=== PATIENT | male | born 1960 | race Caucasian/White ===

== ENCOUNTER 2017-05-02 05:31 | Outpatient (CLI) | payer OTHER ==
[~2017-05-02] VITALS: Ht 177.8 cm; Wt 104.3 kg
[~2017-05-02 05:31] MED LIST: ASP325TEC PO; DICY20TA57 PO; METO-272 PO
== END 2017-05-02 13:32 ==
LOC: PREOP 05:31
PROVIDERS: ATTEND Internal Medicine
DX: Z01.818 Encounter for other preprocedural examination (principal); Z12.11 Encounter for screening for malignant neoplasm of colon

== ENCOUNTER 2017-05-05 08:01 | Day surgery (SDC) | payer OTHER ==
[~2017-05-05] VITALS: Ht 177.8 cm; Wt 104.3 kg
--- OUTSIDE RECORDS SUMMARY | 2017-05-05 08:04 | XMS REPORT | Continuity of Care Document ---
Author Author [facility] Organization [facility] Address Unknown Phone Unavailable Allergies Active Description Code Type Severity Reaction Onset Reported/Identified Relationship to Patient Clinical Status Yes No Known Drug Allergies [id number] Drug Allergy Mild N/A 08/22/2009 Medications Problems Date Dx Coded Attending Type Code Diagnosis Diagnosed By 05/14/2015 WYATT CARROLL APRN Ot 401.9 05/14/2015 WYATT CARROLL APRN Ot 924.10 05/14/2015 WYATT CARROLL APRN Ot 959.7 05/14/2015 WYATT CARROLL APRN Ot E000.8 05/14/2015 WYATT CARROLL APRN Ot E849.0 05/14/2015 WYATT CARROLL APRN Ot E917.4 Procedures Results Encounters ACCT No. Visit Date/Time Discharge Status Pt. Type Provider Facility Loc./Unit Complaint [id number] 05/14/2015 12:01:00 2014 13:23:00 DIS Emergency WYATT CARROLL APRN [facility] ER [id number] 05/05/2017 09:00:00 PEN PreadAHLEY Robb MD [facility] ENDO SCREENING
[2017-05-05] MEDS ORDERED: 1/2 NS IV SOLUTION 1,000 ML IV STA (08:11)
[2017-05-05] MEDS ORDERED: MIDAZOLAM 2 MG/2 ML (VERSED) VIAL IVP PRN (08:15)
[2017-05-05] MEDS ORDERED: LIDOCAINE JELLY 2% (XYLOCAINE) 5 ML TUBE MM PRN (08:15)
[2017-05-05] MEDS ORDERED: 1/2 NS IV SOLUTION 1,000 ML IV ONE (08:21)
[2017-05-05 08:35] VITALS: BP 145/102
[2017-05-05] MEDS ORDERED: fentaNYL INJECTION 100 MCG/2 ML AMP ONE (08:46)
[2017-05-05] MEDS ORDERED: MIDAZOLAM 2 MG/2 ML (VERSED) VIAL ONE ×2 (08:46)
[2017-05-05] MEDS ORDERED: LIDOCAINE JELLY 2% (XYLOCAINE) 5 ML TUBE ONE (08:46)
--- NOTE | 2017-05-05 09:02 | Pre-Op Note & Conscious Sedat ---
Pre-Operative Progress Note H&P Reviewed The H&P was reviewed, patient examined and no changes noted. Date H&P Reviewed: May 05, 2017 Time H&P Reviewed: 09:00 Conscious Sedation Pre-Proced ASA Class: 2 Airway Mallampati Classification: (pedro bay appropriate class) I. II. III, IV Lungs Heart ASA score ASA 1: a normal healthy patient ASA 2: a patient with a mild systemic disease (mid diabetes, controlled hypertension, obesity ASA 3: a patient with a severe systemic disease that limits activity (angina , COPD, prior Myocardial infarction) ASA 4: a patient with an incapacitating disease that is a constant threat to life (CHF, renal failure) ASA 5: a moribund patient not expected to survive 24 hrs. (ruptured aneurysm) ASA 6: a declared brain patient whose organs are being harvested. For emergent operations, add the letter E after the classification Grade 2 Sedation Plan: Analgesia, Amnesia, Plan communicated to team members, Discussed options with patient/fam, Discussed risks with patient/fam Note The patient is an appropriate candidate to undergo the planned procedure, sedation, and anesthesia. The patient immediately re-assessed prior to indication. HALEY MANNING MD May 05, 2017 09:02
[2017-05-05] MEDS: fentaNYL INJECTION 100 MCG/2 ML AMP IVP PRN ×2 (09:10→09:15)
[2017-05-05 09:45] VITALS: BP 130/93
[2017-05-05 10:15] VITALS: BP 123/85
[2017-05-05 11:25] VITALS: BP 123/85
--- NOTE | 2017-05-06 09:30 | OPERATIVE REPORT ---
PROCEDURE PHYSICIAN: HALEY MANNING DATE OF PROCEDURE: 05/05/2017 COLONOSCOPY SUMMARY: INDICATION FOR THE PROCEDURE: Screening colonoscopy. PRIMARY CARE PROVIDER: Dr. Manning PROCEDURE: The patient was placed in left lateral decubitus position. Prior to undergoing colonoscopy, digital rectal evaluation was performed. Anal sphincter tone was normal and the perianal reflex was intact. The prostate was mildly enlarged, nontender and anodular to digital inspection with uniform consistency to digital inspection. No other abnormalities were noted to digital inspection of the anal canal and distal rectal vault. The colonoscope was then inserted into the rectum and under direct visualization, advanced to the cecum. The cecum was identified by identification of the ileocecal valve and cecal strap. Photographic documentation was obtained and a careful inspection was made. FINDINGS: There was no evidence for internal or external hemorrhoids and the rectum was unremarkable. Present at the rectosigmoid junction was a diminutive hyperplastic appearing polyp. It was biopsied, ablated, and submitted for histopathology, with no subsequent blood loss. A moderate number of small to medium size sigmoid diverticulum were present throughout the sigmoid colon and to a lesser extent involving the descending colon. No other abnormalities were in these locations were noted. The splenic flexure, transverse colon, hepatic flexure, ascending colon and cecum were normal. ASSESSMENT: 1. Mild to moderate diverticular disease noted in the sigmoid colon and to a lesser extent the descending colon were present without evidence for diverticulitis. 2. One diminutive hyperplastic appearing polyp was removed from the rectosigmoid junction via hot forceps. 3. Digital rectal evaluation compatible with mild BPH with an otherwise unremarkable digital prostate inspection. The patient is not aware of any family history for colon cancer. As long as there are no surprises on histopathology report, we will be advocating consideration for repeat screening colonoscopy in 10 years. Job ID: [id number] Dictated Date: 05/05/2017 11:45:22 Load Test Mechanic Date: 05/06/2017 09:23:46 / tbk
== END 2017-05-05 11:28 | disposition home or self-care (01) ==
LOC: ENDO 08:01
PROVIDERS: ATTEND Internal Medicine
DX: Z12.11 Encounter for screening for malignant neoplasm of colon (principal); K62.1 Rectal polyp; K57.30 Diverticulosis of large intestine without perforation or abscess without bleeding; I10 Essential (primary) hypertension; Z80.0 Family history of malignant neoplasm of digestive organs

== ENCOUNTER 2017-08-06 09:16 | Emergency (ER) | payer OTHER ==
[~2017-08-06] VITALS: Ht 175.3 cm; Wt 79.4 kg
--- OUTSIDE RECORDS SUMMARY | 2017-08-06 09:21 | XMS REPORT | Continuity of Care Document ---
Author Author [facility] Organization [facility] Address Unknown Phone Unavailable Allergies Active Description Code Type Severity Reaction Onset Reported/Identified Relationship to Patient Clinical Status Yes No Known Drug Allergies [id number] Drug Allergy Mild N/A 08/22/2009 Medications Problems Date Dx Coded Attending Type Code Diagnosis Diagnosed By 05/14/2015 WYATT CARROLL APRN Ot 401.9 HYPERTENSION NOS 05/14/2015 WYATT CARROLL APRN Ot 924.10 CONTUSION OF LOWER LEG 05/14/2015 WYATT CARROLL APRN Ot 959.7 LOWER LEG INJURY NOS 05/14/2015 WYATT CARROLL TELECOMMUNICATIONS ANALYST Ot E000.8 OTHER EXTERNAL CAUSE STATUS 05/14/2015 WYATT CARROLL APRN Ot E849.0 ACCIDENT IN HOME 05/14/2015 WYATT CARROLL TELECOMMUNICATIONS ANALYST Ot E917.4 STAT OB W/O SUB FALL NEC 05/02/2017 HALEY MANNING MD Ot Z01.818 ENCOUNTER FOR OTHER PREPROCEDURAL EXAMIN 05/02/2017 HALEY MANNING MD Ot Z12.11 ENCOUNTER FOR SCREENING FOR MALIGNANT NE 05/05/2017 HALEY MANNING MD Ot I10 ESSENTIAL (PRIMARY) HYPERTENSION 05/05/2017 HALEY MANNING MD Ot K57.30 DVRTCLOS OF LG INT W/O PERFORATION OR AB 05/05/2017 HALEY MANNING MD Ot K62.1 RECTAL POLYP 05/05/2017 HALEY MANNING MD Ot Z12.11 ENCOUNTER FOR SCREENING FOR MALIGNANT NE 05/05/2017 HALEY MANNING MD Ot Z80.0 FAMILY HISTORY OF MALIGNANT NEOPLASM OF 05/10/2017 HALEY MANNING MD Ot I10 ESSENTIAL (PRIMARY) HYPERTENSION 05/10/2017 HALEY MANNING MD Ot K57.30 DVRTCLOS OF LG INT W/O PERFORATION OR AB 05/10/2017 HALEY MANNING MD Ot K62.1 RECTAL POLYP 05/10/2017 HALEY MANNING MD Ot Z12.11 ENCOUNTER FOR SCREENING FOR MALIGNANT NE 05/10/2017 HALEY MANNING MD Ot Z80.0 FAMILY HISTORY OF MALIGNANT NEOPLASM OF 05/17/2017 HALEY MANNING MD Ot I10 ESSENTIAL (PRIMARY) HYPERTENSION 05/17/2017 HALEY MANNING MD Ot K57.30 DVRTCLOS OF LG INT W/O PERFORATION OR AB 05/17/2017 HALEY MANNING MD Ot K62.1 RECTAL POLYP 05/17/2017 HALEY MANNING MD Ot Z12.11 ENCOUNTER FOR SCREENING FOR MALIGNANT NE 05/17/2017 HALEY MANNING MD Ot Z80.0 FAMILY HISTORY OF MALIGNANT NEOPLASM OF Procedures Results Encounters ACCT No. Visit Date/Time Discharge Status Pt. Type Provider Facility Loc./Unit Complaint [id number] 05/05/2017 08:01:00 2016 11:28:00 DIS Outpatient HALEY MANNING MD [facility] ENDO SCREENING [id number] 05/02/2017 05:31:00 2016 13:32:00 DIS Outpatient HALEY MANNING MD [facility] PREOP SCREENING COLONOSCOPY [id number] 05/14/2015 12:01:00 2014 13:23:00 DIS Emergency WYATT CARROLL APRN [facility] ER RT LOWER LEG INJ
[2017-08-06] MEDS ORDERED: ONDANSETRON 4 MG/2 ML (SDV) Z0FRAN IVP ONE (09:45)
[2017-08-06] MEDS ORDERED: fentaNYL INJECTION 100 MCG/2 ML AMP IVP ONE (09:45)
[2017-08-06] MEDS ORDERED: NS IV 1000 ML 1,000 ML IV ONE (09:47)
[2017-08-06 09:54] LABS: BASOPHILS % (AUTO) 0 % (0-10); EOSINOPHILS % (AUTO) 0 % (0-10); LYMPHOCYTES # (AUTO) 1.2 X 10^3 (1.0-4.0); LYMPHOCYTES % (AUTO) 9 % (12-44); MEAN CORPUSCULAR HEMOGLOBIN 29 PG (25-34); MEAN CORPUSCULAR HGB CONC 34 G/DL (32-36); MEAN CORPUSCULAR VOLUME 86 FL (80-99); MEAN PLATELET VOLUME 10.2 FL (7.4-10.4); MONOCYTES # (AUTO) 0.8 X 10^3 (0.0-1.0); MONOCYTES % (AUTO) 6 % (0-12); NEUTROPHILS # (AUTO) 11.7 X 10^3 (1.8-7.8); NEUTROPHILS % (AUTO) 86 % (42-75); PLATELET COUNT 302 10^3/uL (130-400); RED BLOOD COUNT 5.41 10^6/uL (4.35-5.85); RED CELL DISTRIBUTION WIDTH 13.4 % (10.0-14.5); WHITE BLOOD COUNT 13.7 10^3/uL (4.3-11.0)
--- NOTE | 2017-08-06 09:54 | ED Abdominal Pain ---
General Chief Complaint: Abdominal/GI Problems Stated Complaint: TESTICULAR PAIN Nursing Triage Note: c/o right flank pain with radiation to abdomen/testicles. Onset 0530 this morning. Sepsis Screen: No Definite Risk Source of Information: Patient Exam Limitations: No Limitations History of Present Illness Time Seen By Provider: 09:41 Initial Comments Patient presents to ER by private conveyance with a chief complaint that she's having some pain that he woke up this morning with in his right flank radiating to his right lower quadrant. It is appendix out 30 years ago. He has no other surgical history. This pain is nonradiating and comes in waves but never abets to less than a moderate pain. He has no shortness of breath, chest pain, cough, fevers, chills. He has no prior trauma. His last bowel movement was last night and was a little bit soft but without black tarry appearance or blood. He is concerned he might have a bowel obstruction. He is passing gas. He has no history of kidney stones. Denies dysuria or discharge. Patient describes the pain sometimes radiating down to his testicles but not presently. Allergies and Home Medications Allergies Coded Allergies: No Known Drug Allergies (Unverified , 08/22/09) Home Medications Ondansetron 4 Mg Tab.rapdis, 4 MG PO Q6H PRN for NAUSEA/VOMITING-1ST LINE, #14 Ref 0 Prescribed by: SOPHIA BOATENG on 08/06/17 1034 Oxycodone HCl/Acetaminophen 1 Each Tablet, 1-2 EACH PO Q6H PRN for PAIN- MODERATE TO SEVERE, #30 Ref 0 Prescribed by: SOPHIA BOATENG on 08/06/17 1034 Sulfamethoxazole/Trimethoprim 1 Each Tablet, 1 EACH PO BID for 5 Days, #10 Ref 0 Prescribed by: SOPHIA BOATENG on 08/06/17 1034 Tamsulosin HCl 0.4 Mg Cap, 0.4 MG PO HS for 7 Days, #7 Ref 0 Prescribed by: SOPHIA BOATENG on 08/06/17 1034 Review of Systems Constitutional: No chills, diaphoresis, No fever EENTM: No Ear Pain, No Mouth Pain Respiratory: Denies Cough, Denies Shortness of Air Cardiovascular: Denies Chest Pain, Denies Lightheadedness Gastrointestinal: See HPI, Denies Abdomen Distended, Abdominal Pain, Denies Blood Streaked Stools, Denies Constipated, Denies Diarrhea, Nausea, Denies Vomiting Genitourinary: Denies Burning, Denies Discharge Musculoskeletal: see HPI, back pain, No joint pain Skin: No pruritus, No rash Psychiatric/Neurological: Denies Headache, Denies Numbness, Paresthesia ( bilateral fingertips on the pain is very severe.) Past Yprnxbf-Gpkuxr-Xzleuq Hx Patient Social History Alcohol Use: Denies Use Recreational Drug Use: No Smoking Status: Never a Smoker Recent Foreign Travel: No Contact w/Someone Who Travel: No Recent Infectious Disease Expo: No Recent Hopitalizations: No Seasonal Allergies Seasonal Allergies: No Surgeries Surgeries: Appendectomy Cardiovascular Cardiac Disorders: Hypertension Reproductive System Hx Reproductive Disorders: No Sexually Transmitted Disease: No Physical Exam Vital Signs VS - Last 72 Hours, by Label 08/06/17 08/06/17 08/06/17 09:25 09:45 10:47 Temp 96.3 96.3 96.3 Pulse 70 Resp 16 B/P (MAP) 175/114 Pulse Ox 98 O2 Delivery Room Air Capillary Refill : Less Than 3 Seconds General Appearance: WD/WN, mild distress HEENT: PERRL/EOMI, pharynx normal Neck: non-tender, normal inspection Respiratory: chest non-tender, lungs clear, normal breath sounds Cardiovascular: normal peripheral pulses, regular rate, rhythm, no edema Peripheral Pulses: 2+ Dorsalis Pedis (R), 2+ Left Dors-Pedis (L) Gastrointestinal: normal bowel sounds, non tender, soft, guarding Extremities: normal range of motion, normal inspection, normal capillary refill Back: normal inspection, no CVA tenderness Neurologic/Psychiatric: alert, oriented x 3 Skin: normal color, diaphoresis Focused Exam Evaluation Lactate Level Laboratory Tests 08/06/17 10:06: Lactic Acid Level 2.13*H 08/06/17 11:55: Lactic Acid Level 1.31 Time of Focused Exam: 12:51 Respiratory: Chest Non Tender, Lungs Clear, Normal Breath Sounds Cardiovascular: Regular Rate, Rhythm, No Edema, No Gallop Capillary Refill: Less Than 3 Seconds Peripheral Pulses: 2+ Dorsalis Pedis (R), 2+ Left Dors-Pedis (L) Skin: normal color, warm/dry Lactic Acid Level Laboratory Tests Test 08/06/17 10:06 08/06/17 11:55 Lactic Acid Level 2.13 MMOL/L (0.50-2.00) *H 1.31 MMOL/L (0.50-2.00) Progress/Results/Core Measures Results/Orders Lab Results Laboratory Tests Test 08/06/17 09:34 08/06/17 10:06 08/06/17 11:55 08/06/17 11:56 Range/Units White Blood Count 13.7 H 4.3-11.0 10^3/uL Red Blood Count 5.41 4.35-5.85 10^6/uL Hemoglobin 15.7 13.3-17.7 G/DL Hematocrit 47 40-54 % Mean Corpuscular Volume 86 80-99 FL Mean Corpuscular Hemoglobin 29 25-34 PG Mean Corpuscular Hemoglobin Concent 34 32-36 G/DL Red Cell Distribution Width 13.4 10.0-14.5 % Platelet Count 302 130-400 10^3/uL Mean Platelet Volume 10.2 7.4-10.4 FL Neutrophils (%) (Auto) 86 H 42-75 % Lymphocytes (%) (Auto) 9 L 12-44 % Monocytes (%) (Auto) 6 0-12 % Eosinophils (%) (Auto) 0 0-10 % Basophils (%) (Auto) 0 0-10 % Neutrophils # (Auto) 11.7 H 1.8-7.8 X 10^3 Lymphocytes # (Auto) 1.2 1.0-4.0 X 10^3 Monocytes # (Auto) 0.8 0.0-1.0 X 10^3 Eosinophils # (Auto) 0.0 0.0-0.3 10^3/uL Basophils # (Auto) 0.0 0.0-0.1 10^3/uL Sodium Level 140 135-145 MMOL/L Potassium Level 3.5 L 3.6-5.0 MMOL/L Chloride Level 105 98-107 MMOL/L Carbon Dioxide Level 24 21-32 MMOL/L Anion Gap 11 5-14 MMOL/L Blood Urea Nitrogen 10 7-18 MG/DL Creatinine 1.05 0.60-1.30 MG/DL Estimat Glomerular Filtration Rate > 60 BUN/Creatinine Ratio 10 Glucose Level 141 H 70-105 MG/DL Calcium Level 9.3 8.5-10.1 MG/DL Total Bilirubin 0.5 0.1-1.0 MG/DL Aspartate Amino Transf (AST/SGOT) 23 5-34 U/L Alanine Aminotransferase (ALT/SGPT) 23 0-55 U/L Alkaline Phosphatase 60 40-136 U/L Total Protein 7.1 6.4-8.2 GM/DL Albumin 4.3 3.2-4.5 GM/DL Lactic Acid Level 2.13 *H 1.31 0.50-2.00 MMOL/L Urine Color YELLOW Urine Clarity CLEAR Urine pH 5 5-9 Urine Specific Center 1.025 H 1.016-1.022 Urine Protein 1+ H NEGATIVE Urine Glucose (UA) NEGATIVE NEGATIVE Urine Ketones NEGATIVE NEGATIVE Urine Nitrite NEGATIVE NEGATIVE Urine Bilirubin NEGATIVE NEGATIVE Urine Urobilinogen NORMAL NORMAL MG/DL Urine Leukocyte Esterase 1+ H NEGATIVE Urine RBC (Auto) 3+ H NEGATIVE Urine RBC NONE /HPF Urine WBC 0-2 /HPF Urine Crystals NONE /LPF Urine Bacteria NEGATIVE /HPF Urine Casts NONE /LPF Urine Mucus MODERATE H /LPF Urine Culture Indicated NO Urine Opiates Screen NEGATIVE NEGATIVE Urine Oxycodone Screen NEGATIVE NEGATIVE Urine Methadone Screen NEGATIVE NEGATIVE Urine Propoxyphene Screen NEGATIVE NEGATIVE Urine Barbiturates Screen NEGATIVE NEGATIVE Ur Tricyclic Antidepressants Screen NEGATIVE NEGATIVE Urine Phencyclidine Screen NEGATIVE NEGATIVE Urine Amphetamines Screen NEGATIVE NEGATIVE Urine Methamphetamines Screen NEGATIVE NEGATIVE Urine Benzodiazepines Screen NEGATIVE NEGATIVE Urine Cocaine Screen NEGATIVE NEGATIVE Urine Cannabinoids Screen NEGATIVE NEGATIVE My Orders Orders - SOPHIA BOATENG Fentanyl Injection (Sublimaze Injection (08/06/17 09:45) Ondansetron Injection (Zofran Injectio (08/06/17 09:45) Ct Abd/Pelvis Wo(Kidney Stone) (08/06/17 09:47) Saline Lock/Iv-Start (08/06/17 09:47) Cbc With Automated Diff (08/06/17 09:47) Comprehensive Metabolic Panel (08/06/17 09:47) Drug Screen Stat (Urine) (08/06/17 09:47) Ua Culture If Indicated (08/06/17 09:47) Ns Iv 1000 Ml (Sodium Chloride 0.9%) (08/06/17 09:47) Lactic Acid Analyzer (08/06/17 10:08) Potassium Chloride (Tablet) (K Dur Table (08/06/17 10:15) Ketorolac Injection (Toradol Injection) (08/06/17 10:45) Lactic Acid Analyzer (08/06/17 10:57) Sulfamethoxazole/Trimet Ds Tab (Bactrim (08/06/17 11:00) Blood Culture (08/06/17 10:59) Ns Iv 500 Ml (Sodium Chloride 0.9%) (08/06/17 11:26) Oxycodone/Acet 10/325mg Tablet (Percocet (08/06/17 12:30) Medications Given in ED Current Medications Medications Dose Ordered Sig/Morena Route Start Time Stop Time Status Last Admin Dose Admin Fentanyl Citrate 50 mcg ONCE ONCE IVP 08/06/17 09:45 08/06/17 09:46 DC 08/06/17 09:45 50 MCG Ketorolac Tromethamine 15 mg ONCE ONCE IVP 08/06/17 10:45 08/06/17 10:46 DC 08/06/17 10:47 15 MG Ondansetron HCl 4 mg ONCE ONCE IVP 08/06/17 09:45 08/06/17 09:46 DC 08/06/17 09:45 4 MG Potassium Chloride 20 meq ONCE ONCE PO 08/06/17 10:15 08/06/17 10:16 DC 08/06/17 10:47 20 MEQ Sodium Chloride 500 ml @ 0 mls/hr Q0M ONCE IV 08/06/17 11:26 08/06/17 11:27 DC 08/06/17 11:30 1,130 MLS/HR Sodium Chloride 1,000 ml @ 0 mls/hr Q0M ONCE IV 08/06/17 09:47 08/06/17 09:50 DC 08/06/17 10:00 0 MLS/HR Trimethoprim/ Sulfamethoxazole 1 ea ONCE ONCE PO 08/06/17 11:00 08/06/17 11:02 DC 08/06/17 11:15 1 EA Vital Signs/I&O Vital Sign - Last 12Hours 08/06/17 08/06/17 08/06/17 09:25 09:45 10:47 Temp 96.3 96.3 96.3 Pulse 70 Resp 16 B/P (MAP) 175/114 Pulse Ox 98 O2 Delivery Room Air Blood Pressure Mean: 134 Progress Note #1: Time: 09:53 Progress Note Right flank pain concern for kidney stone. Bowel obstruction is less likely given his passing gas and had a stool yesterday evening however its a possibility as well. He's had his appendix out already. Progress Note #2: Time: 12:52 Progress Note Patient's feeling much better pains better controlled and he would prefer going home. We have discussed the pros and cons of inpatient stay versus going home and I agree that the patient would be well served to continue outpatient therapy. He's tolerated by mouth so far. Diagnostic Imaging Diagonstic Imaging: CT Plain Films/CT/US/NM/MRI: abdomen, pelvis Comments Diverticulosis without evidence of diverticulitis. No air or free fluid and no obvious abscess. Right 3 mm stone in the ureter. NAME: EVA JIMENES [facility] REC#: [id number] PT STATUS: REG ER : 1960 PHYSICIAN: SOPHIA BOATENG MD ADMIT DATE: 08/06/17/ER Draft Date of Exam:08/06/17 CT ABD/PELVIS WO(KIDNEY STONE) PROCEDURE: CT urinary tract, rule out kidney stone. TECHNIQUE: Multiple contiguous axial images were obtained through the abdomen and pelvis without the use of intravenous contrast. INDICATION: Nausea. Right-sided flank pain radiating into the right groin There is a 1 cm cyst in the liver. The gallbladder and bile ducts are normal. The spleen, pancreas and adrenals are normal. The left kidney shows a 3 mm nonobstructing calculus. The left ureter is normal. There is mild pelvocaliectasis of the right kidney with some stranding around the right kidney. The right ureter is mildly dilated down into the pelvis where there is a 3 mm calculus just proximal to the ureterovesical junction. There is no intrinsic abnormality of the bladder. There is diverticulosis of the colon with no evidence of diverticulitis or other acute bowel abnormality. There is a ventral hernia at the level of the umbilicus containing only fat. There is no ascites. There is no acute bony abnormality. IMPRESSION: There is a 3 mm calculus just proximal to the right ureterovesical junction causing obstruction at this site. There is a nonobstructing calculus in the left kidney. There is diverticulosis of the colon. There is a small ventral hernia. Dictated on workstation # [id number] Dict: 08/06/17 1004 Trans: 08/06/17 1016 LIZBETH [id number] Interpreted by: AILYN SPENCER MD Electronically signed by: Reviewed: Reviewed by Me Departure Impression Impression: Primary Impression: Kidney stone on right side Disposition: HOME, SELF-CARE Condition: Stable Departure-Patient Inst. Decision time for Depature: 12:52 Referrals: HALEY MANNING MD (PCP/Family) Primary Care Physician Patient Instructions: Kidney Stones (DC) Add. Discharge Instructions: Drink lots of fluids and caffeine is encouraged. Use the pain medicine 1-2 tablets every 6 hours as needed to control your pain. Strain your urine every time to try and catch the stone. If you catch the stone take it to your doctor they can send of the lab have it tested find out what kind of stone it is and will help you further prevent the stones in the future. Use Zofran every 6 hours as needed under the tongue for nausea. Use the Flomax every night to help pass the stone until you've passed it. Use the antibiotics twice a day by mouth to prevent infection. Once you pass the stone you may discontinue these medications although it is not unusual to have pink tinged urine or pain for a few days following passing a stone. Please return to the ER if you experience fevers or nausea and vomiting that does not respond to the Zofran. If you have not been able to pass the stone or are having continued pain and nausea by Monday you should call Dr. Tracy at his office at [phone]. All discharge instructions reviewed with patient and/or family. Voiced understanding. Scripts Tamsulosin HCl (Flomax) 0.4 Mg Cap 0.4 MG PO HS for 7 Days, #7 CAP 0 Refills Prov: SOPHIA BOATENG 08/06/17 Ondansetron (Zofran Odt) 4 Mg Tab.rapdis 4 MG PO Q6H Y for NAUSEA/VOMITING-1ST LINE, #14 TAB 0 Refills Prov: SOPHIA BOATENG 08/06/17 Oxycodone HCl/Acetaminophen (Percocet 10-325 mg Tablet) 1 Each Tablet 1-2 EACH PO Q6H Y for PAIN-MODERATE TO SEVERE, #30 TAB 0 Refills Prov: SOPHIA BOATENG 08/06/17 Sulfamethoxazole/Trimethoprim (Bactrim Ds Tablet) 1 Each Tablet 1 EACH PO BID for 5 Days, #10 TAB 0 Refills Prov: SOPHIA BOATENG 08/06/17 Work/School Note: Work Release Form Date Seen in the Emergency Department: Aug 06, 2017 Return to Work: Aug 07, 2017 Restrictions: No Restrictions Copy Copies To 1: HALEY MANNING MD, TITUS J Aug 06, 2017 09:54
[2017-08-06 10:07] LABS: ALANINE AMINOTRANSFERASE 23 U/L (0-55); ALBUMIN 4.3 GM/DL (3.2-4.5); ANION GAP 11 MMOL/L (5-14); ASPARTATE AMINO TRANSFERASE 23 U/L (5-34); BILIRUBIN,TOTAL 0.5 MG/DL (0.1-1.0); BLOOD UREA NITROGEN 10 MG/DL (7-18); BUN/CREATININE RATIO 10; CALCIUM 9.3 MG/DL (8.5-10.1); CARBON DIOXIDE 24 MMOL/L (21-32); CHLORIDE 105 MMOL/L (98-107); CREATININE SERUM 1.05 MG/DL (0.60-1.30); GFR ESTIMATED > 60; GLUCOSE 141 MG/DL (70-105); POTASSIUM 3.5 MMOL/L (3.6-5.0); SODIUM 140 MMOL/L (135-145); TOTAL PROTEIN 7.1 GM/DL (6.4-8.2)
[2017-08-06] MEDS ORDERED: KCL 20 MEQ TAB (K-DUR) PO ONE (10:15)
--- NOTE | 2017-08-06 10:17 | Diagnostic Imaging Report ---
PROCEDURE: CT urinary tract, rule out kidney stone. TECHNIQUE: Multiple contiguous axial images were obtained through the abdomen and pelvis without the use of intravenous contrast. INDICATION: Nausea. Right-sided flank pain radiating into the right groin There is a 1 cm cyst in the liver. The gallbladder and bile ducts are normal. The spleen, pancreas and adrenals are normal. The left kidney shows a 3 mm nonobstructing calculus. The left ureter is normal. There is mild pelvocaliectasis of the right kidney with some stranding around the right kidney. The right ureter is mildly dilated down into the pelvis where there is a 3 mm calculus just proximal to the ureterovesical junction. There is no intrinsic abnormality of the bladder. There is diverticulosis of the colon with no evidence of diverticulitis or other acute bowel abnormality. There is a ventral hernia at the level of the umbilicus containing only fat. There is no ascites. There is no acute bony abnormality. IMPRESSION: There is a 3 mm calculus just proximal to the right ureterovesical junction causing obstruction at this site. There is a nonobstructing calculus in the left kidney. There is diverticulosis of the colon. There is a small ventral hernia. Dictated by: Dictated on workstation # [id number]
[2017-08-06] MEDS ORDERED: TAMS0.4C98 PO (10:34)
[2017-08-06] MEDS ORDERED: ONDA4TAB8 PO (10:34)
[2017-08-06] MEDS ORDERED: OXYC-202 PO (10:34)
[2017-08-06] MEDS ORDERED: SULF1TAB35 PO (10:34)
[2017-08-06] MEDS ORDERED: KETOROLAC 30 MG/ML VIAL IVP ONE (10:45)
[2017-08-06] MEDS ORDERED: TRIM/SULFAMETH 160/800 (SEPTRA DS) TAB PO ONE (11:00)
[2017-08-06] MEDS ORDERED: NS IV 500 ML 500 ML IV ONE (11:26)
[2017-08-06 12:08] LABS: BILIRUBIN,URINE NEGATIVE (NEGATIVE); KETONES,URINE NEGATIVE (NEGATIVE); LEUKOCYTE ESTERASE ,URINE 1+ (NEGATIVE); NITRITE,URINE NEGATIVE (NEGATIVE); PH,URINE 5 (5-9); PROTEIN,URINE 1+ (NEGATIVE); UROBILINOGEN,URINE NORMAL (NORMAL)
[2017-08-06 12:27] LABS: WBC,URINE 0-2 /HPF
[2017-08-06] MEDS ORDERED: oxyCODONE/APAP 10/325MG (PERCOCET 10) TABLET PO ONE (12:30)
[2017-08-06] MEDS ORDERED: oxyCODONE/APAP 5/325MG (PERCOCET 5) TABLET PO ONE (13:00)
[2017-08-06 13:04] VITALS: BP 153/90
== END 2017-08-06 13:04 | disposition home or self-care (01) ==
LOC: EDUNIT# 09:16 → ER 09:17
DX: N20.0 Calculus of kidney (principal); I10 Essential (primary) hypertension; Z90.49 Acquired absence of other specified parts of digestive tract
CPT/HCPCS: 36415; 74176; 80053; 80306; 81000; 83605; 85025; 87040; 96361; 96374; 96375

== ENCOUNTER → 2017-08-11 | Outpatient (CLI) | payer OTHER ==
[~2017-08-11] MED LIST changes: +ONDA4TAB8 PO; +OXYC-202 PO; +SULF1TAB35 PO; +TAMS0.4C98 PO
--- NOTE | 2017-08-11 19:21 | Diagnostic Imaging Report ---
KUB. INDICATION: Nausea. Right flank pain. 3 mm stone in the distal right ureter is seen on CT from 08/06/17. FINDINGS: There is a 3 mm faint density seen in the right side of the pelvis located medial to a right pelvic phlebolith, may represent the distal ureteric stone. No definitive stone is seen in the urinary tract otherwise. Unremarkable bowel gas pattern is seen. IMPRESSION: There is questionable visualization of the distal right ureteric stone with a 3 mm faint density, possibly correlating with the CT scan findings of 08/06/17. Dictated by: Dictated on workstation # [id number]
== END ==
LOC: RAD 10:13
PROVIDERS: ATTEND Urology
DX: N20.1 Calculus of ureter (principal)
CPT/HCPCS: 74000

== ENCOUNTER → 2017-08-14 | Outpatient (CLI) | payer OTHER | LOC: PREOP 06:07 | PROVIDERS: ATTEND Urology | DX: Z01.818 Encounter for other preprocedural examination (principal); N20.2 Calculus of kidney with calculus of ureter ==

== ENCOUNTER 2017-09-11 06:30 | Outpatient (RCR) | payer OTHER | END 2017-12-04 | disposition home or self-care (01) | LOC: LAB 06:30 | PROVIDERS: ATTEND Urology | DX: N20.9 Urinary calculus, unspecified (principal) | CPT/HCPCS: 82140; 82340; 82507; 82570; 83735; 83945; 83986; 84105; 84133; 84300; 84392; 84560; 88300; 88304 ==

== ENCOUNTER → 2018-10-02 | Outpatient (CLI) | payer OTHER ==
[~2018-10-02] MED LIST changes: -OXYC-202 PO; +OXYC1TAB12 PO
--- NOTE | 2018-10-02 18:09 | Diagnostic Imaging Report ---
INDICATION: History of renal stones. No current complaint. TECHNIQUE: Two supine views of the abdomen at 3:45 p.m. CORRELATION STUDY: 08/11/2017. FINDINGS: A few gas-filled loops of small bowel are present. No evidence for obstruction. Mild severity fecal retention. Tiny calcific densities in the right hemipelvis appears unchanged consistent with small phleboliths. No definitive evidence of calcification over the renal silhouette or expected course of either ureter. Bony structures demonstrate no significant interval change or acute findings. IMPRESSION: 1. Unremarkable examination of the abdomen. No definitive evidence for nephrolithiasis. Dictated by: Dictated on workstation # [id number]
== END ==
LOC: RAD 14:59
PROVIDERS: ATTEND Urology
DX: Z87.442 Personal history of urinary calculi (principal)
CPT/HCPCS: 74018

== ENCOUNTER 2021-05-12 06:10 | Outpatient (CLI) | payer OTHER ==
[~2021-05-12] VITALS: Ht 177.8 cm; Wt 100.0 kg
[~2021-05-12 06:10] MED LIST changes: -TAMS0.4C98 PO; +TMSL.4C PO
[2021-05-12] MEDS ORDERED: BENA10TA66 PO (11:22)
== END 2021-05-12 11:39 | disposition home or self-care (01) ==
LOC: PREOP 06:10
PROVIDERS: ATTEND Surgery
DX: Z01.818 Encounter for other preprocedural examination (principal)

== ENCOUNTER 2021-05-19 08:02 | Day surgery (SDC) | payer OTHER ==
[2021-05-19] VITALS (10 sets, daily range): BP systolic 130–160; BP diastolic 88–106
[~2021-05-19] VITALS: Ht 177.8 cm; Wt 100.0 kg
[~2021-05-19 08:02] MED LIST changes: +BENA10TA66 PO; -SULF1TAB35 PO; +SULF1TAB38 PO
[2021-05-19] MEDS ORDERED: LACTATED RINGERS 1,000 ML IV PRN (08:15)
[2021-05-19] MEDS ORDERED: ceFAZolin 2 GM IV Premixed 50 ML IV ONE (08:15)
[2021-05-19] MEDS ORDERED: LIDOCAINE/EPI 1%-1:100,000 (XYLOCAINE) 20ML ONE (08:26)
--- NOTE | 2021-05-19 09:00 | Progress Note-Pre Operative ---
Pre-Operative Progress Note H&P Reviewed The H&P was reviewed, patient examined and no changes noted. Time Seen by Provider: 08:57 Date H&P Reviewed: May 19, 2021 Time H&P Reviewed: 08:57 Pre-Operative Diagnosis: Umbilical hernia CAROL AMOR DO May 19, 2021 09:00
[2021-05-19] MEDS ORDERED: MIDAZOLAM 2 MG/2 ML (VERSED) VIAL ONE (09:25)
[2021-05-19] MEDS ORDERED: fentaNYL INJ 100 MCG/2 ML AMP ONE ×2 (09:25→10:07)
[2021-05-19] MEDS ORDERED: proPOfol 200 MG/20 ML (DIPRIVAN) VIAL IV ONE (09:25)
[2021-05-19] MEDS ORDERED: ONDANSETRON 4 MG/2 ML (SDV) Z0FRAN ONE (09:37)
[2021-05-19] MEDS ORDERED: LIDOCAINE PF 2% 5 ML (XYLOCAINE) VIAL ONE (09:37)
[2021-05-19] MEDS ORDERED: KETOROLAC 30 MG/ML VIAL ONE (09:44)
[2021-05-19] MEDS ORDERED: ROCURONIUM 10 MG/ML 5 ML SYRINGE IV ONE (09:44)
[2021-05-19] MEDS ORDERED: NEOSTIGMINE 3 MG/3 ML VIAL ONE (09:44)
[2021-05-19] MEDS ORDERED: GLYCOPYRROLATE 0.2 MG/ML (ROBINUL) 2 ML VIAL ONE (09:44)
--- NOTE | 2021-05-19 10:02 | Progress Note-Post Operative ---
Post-Operative Progess Note Surgeon (s)/Personal Trainer (s) Surgeon CAROL AMOR DO Personal Trainer: [place] Pre-Operative Diagnosis Umbilical hernia Post-Operative Diagnosis Incarcerated umbilical hernia Procedure & Operative Findings Date of Procedure 05/19/21 Procedure Performed/Findings PROCEDURE: Laparoscopic umbilical hernia repair with mesh. COMPLICATIONS: None. INDICATIONS: The patient is a 60, male with an incarcerated umbilical hernia, which has continued to increase in size and cause discomfort. The patient was explained the risk and benefits of the procedure and wished to proceed with the procedure. Consent was signed on the chart. DESCRIPTION OF PROCEDURE: The patient was taken into the operating suite, prepped and draped in sterile fashion. Surgical pause was performed. Local anesthetic was infiltrated in left upper quadrant. A #11 blade scalpel was used to make a small skin incision. Cautery was used to dissect down to the fascia, which was then scored and divided the muscle, went through the posterior sheath and a balloon trocar was inserted into the abdomen. The abdomen was then insufflated. Incarcerated omental fat was seen in the fascial defect. A 5 mm trocar was placed in the right lower quadrant and a 5 mm trocar was placed in left lower quadrant. The incarcerated fat was then carefully removed and preperitoneal fat was taken down with hook cautery to allow placement of the mesh right onto the peritoneum. Echo Ventralight mesh was then inserted in the abdomen grabbed through the stab incision. The balloon was inflated on the mesh. Circumferential tacks were placed with a SecureStrap Tacker. The balloon was then removed and inner crown was created as well. The mesh was tacked with pressure being decreased. The 12 mm fascial defect was then closed using 0 Vicryl. The abdomen was then desufflated,the trocars were removed. The skin was then closed using 4-0 Monocryl in a running subcuticular fashion. The abdomen was washed and dried and Skin Affix was placed over the incisions. The patient tolerated procedure well without any complications. She was taken to recovery room in stable condition. Dr. Walter assisted on this case helping to place ports, close incisions, identify anatomy and hold anatomy out of the way; as well as tack the mesh in place. Facilitating a quicker procedure, helping the pt not have to be under anesthesia as long. Anesthesia Type GET Estimated Blood Loss Estimated blood loss (mL): scant Specimens/Packing Specimens Removed none CAROL AMOR DO May 19, 2021 10:02
[2021-05-19] MEDS ORDERED: ACHD5005 PO (10:03)
[2021-05-19] MEDS ORDERED: SEVOFLURANE (ULTANE) 15 ML INHAL SOLN ONE (10:03)
--- NOTE | 2021-05-19 10:04 | Discharge Inst-Surgical ---
Discharge Inst-Surgical Depart Medication/Instructions New, Converted or Re-Newed RX: Transmitted to Pharmacy Patient Instructions Follow up Appt: Make appointment for 1 week. [phone] Instructions: No lifting greater than 20 pounds. No strenuous activity. May shower in 24 hours, no tub bath or soaking. Use incentive spirometer at home as directed. No Smoking Skin/Wound Care: May remove bandages in am. You need to leave the Dermabond on incision it will fall off on it's own. Symptoms to Report: Appetite Changes, Extremity Discoloration, Numbness/Tingling, Swelling Increased, Bleeding Excessive, Eyesight Changes, Pain Increased, Urine Color Change, Constipation(Persistent), Fever over 101 degree F, Pain/Pressure in chest, Urinating Difficulty, Cough Up/Vomit Blood, Heart Beat Irreg/Pounding, Pain/Pressure in jaw, Cramps in feet or legs, Lightheadedness, Pain/Pressure in shoulder, Diarrhea(Persistent), Memory Changes Suddenly, Questions/Concerns, Weight gain consecutive days, Dizziness/Fainting, Nausea/Vomiting, Shortness of Breath, Weight gain over 2 pounds If questions or concerns contact your physician Or seek help at emergency department. Activity Activity as Tolerated: Yes Activity Instructions: Avoid Stress to Incision Driving Instructions: No Driving/Refer to Dr. Beatty Discharge Diet: No Restrictions Diet After 24 Hours: Clear Liquid if Nauseous If Any Problems/Questions/Issu: Contact Your Physician, Go to Emergency Room Skin/Wound Care Infection Signs and Symptoms: Increased Redness, Foul Odor of Wound, Increased Drainage, Skin Itchy or Has a Rash, Increased Swelling, Temperature Above 101 F Wound Care Comment: heating pad to shoulder or neck tonight for pain Bathing Instructions: Shower Stitches/[place]/Dermabond Dis: Dermabond Ice Pack: Ice On and Off Site CAROL AMOR DO May 19, 2021 10:04
--- NOTE | 2021-05-19 14:52 | Anesthesia-General Post-Op ---
General Patient Condition Mental Status/LOC: Same as Preop Cardiovascular: Satisfactory Nausea/Vomiting: Absent Respiratory: Satisfactory Pain: Controlled Complications: Absent Post Op Complications Complications None Follow Up Care/Instructions Patient Instructions None needed. Anesthesia/Patient Condition Patient Condition Patient is doing well, no complaints, stable vital signs, no apparent adverse anesthesia problems. No complications reported per nursing. SUDHA LOVE CRNA May 19, 2021 14:52
== END 2021-05-19 12:15 | disposition home or self-care (01) ==
LOC: SDC 08:02
PROVIDERS: ATTEND Surgery
DX: K42.0 Umbilical hernia with obstruction, without gangrene (principal); I10 Essential (primary) hypertension; Z79.899 Other long term (current) drug therapy; Z90.89 Acquired absence of other organs
CPT/HCPCS: 49653; 87081; C1781

== ENCOUNTER 2021-05-22 15:31 | Emergency (ER) | payer OTHER ==
[~2021-05-22] VITALS: Ht 177 cm; Wt 100.0 kg
[~2021-05-22 15:31] MED LIST changes: +ACHD5005 PO
--- NOTE | 2021-05-22 16:28 | ED General ---
General Chief Complaint: General Problems/Pain Stated Complaint: POST OP/ELEV HR, ABD SWELLING/CRAMPS Source of Information: Patient Exam Limitations: No Limitations History of Present Illness Date Seen by Provider: May 22, 2021 Time Seen by Provider: 16:10 Initial Comments Patient is a 60-year-old male who presents to the emergency department today with a chief complaint of "heart pounding", abdominal bloating and stomach cramps and feelings of constipation. Patient states that he felt dizzy and near syncopal at home earlier this afternoon. He is postop 3 day umbilical hernia repair by Dr. Hernandez. Patient states that he has been drinking fluids but his appetite has been decreased. No fevers or chills. He does state that he had a little bowel movement this morning. But he feels like there is more in there. He feels like he may be "blocked". Urinating normally. No fevers or chills. No Covid complaints. Nahma near syncopal in the emergency department waiting room just prior to checking in and was brought back after having gone into the bathroom and sat in the floor where he was sweating and lightheaded. All other review of systems reviewed and negative except as stated. Timing/Duration: 1-2 Days Severity: Moderate Associated Systoms: Diaphoresis, Malaise, Nausea/Vomiting, Weakness Allergies and Home Medications Allergies Coded Allergies: No Known Drug Allergies (Unverified , 08/22/09) Home Medications Benazepril HCl 10 Mg Tablet, 10 MG PO HS, (Reported) Hydrocodone Bit/Acetaminophen 1 Tab Tab, 1 TAB PO Q8H PRN for PAIN-MODERATE (5- 7) Prescribed by: CAROL HERNANDEZ on 05/19/21 1003 Patient Home Medication List Home Medication List Reviewed: Yes Review of Systems Review of Systems Constitutional: see HPI EENTM: no symptoms reported Respiratory: no symptoms reported Cardiovascular: no symptoms reported Gastrointestinal: abdominal pain, other (Constipation) Genitourinary: no symptoms reported Musculoskeletal: no symptoms reported Skin: other (Diaphoresis) Psychiatric/Neurological: Anxiety All Other Systems Reviewed Negative Unless Noted: Yes Past Mcdrwyj-Dktoku-Tdltee Hx Seasonal Allergies Seasonal Allergies: No Past Medical History Surgeries: Yes (lipoma removed from left ear; SKIN LESION REMOVAL) Appendectomy Respiratory: No Cardiac: Yes (hx of PVC) Hypertension Neurological: No Reproductive Disorders: No Sexually Transmitted Disease: No Kidney Stones Gastrointestinal: Yes Diverticulosis, Polyps Musculoskeletal: No Endocrine: No HEENT: No Cancer: Yes Skin Did You Recieve Any Treatments: Yes What Type of Treatment Did You: Surgical Intervention Psychosocial: No Integumentary: No Blood Disorders: No Physical Exam Vital Signs Vital Signs - First Documented 05/22/21 16:19 Temp 34.7 Pulse 105 Resp 18 B/P (MAP) 126/95 (105) Pulse Ox 95 O2 Delivery Room Air Capillary Refill : Height, Weight, BMI Height: 5'9.00" Weight: 175lbs. 0.0oz. [id number]; 31.63 BMI Method:Stated General Appearance: No Apparent Distress, WD/WN, Anxious Eyes: Bilateral Eye Normal Inspection, Bilateral Eye PERRL, Bilateral Eye EOMI HEENT: Pharynx Normal Neck: Normal Inspection Respiratory: Lungs Clear, Normal Breath Sounds, No Accessory Muscle Use, No Respiratory Distress Cardiovascular: Regular Rate, Rhythm, Tachycardia (103 to 105 bpm) Gastrointestinal: Soft, Abnormal Bowel Sounds (Hypoactive bowel sounds), Distended, Tenderness (Over laparoscopic surgical incision sites and the umbilicus) Extremity: Normal Inspection, Normal Range of Motion, Non Tender, No Pedal Edema Neurologic/Psychiatric: Alert, Oriented x3, No Motor/Sensory Deficits, Normal Mood/Affect Skin: Normal Color, Warm/Dry Progress/Results/Core Measures Suspected Sepsis SIRS Temperature: Pulse: Respiratory Rate: Laboratory Tests 05/22/21 16:05: White Blood Count 16.6H Blood Pressure / Mean: Laboratory Tests 05/22/21 16:05: Creatinine 0.92, Platelet Count 462H Results/Orders Lab Results Laboratory Tests Test 05/22/21 16:05 05/22/21 16:10 Range/Units White Blood Count 16.6 H 4.3-11.0 10^3/uL Red Blood Count 6.28 H 4.30-5.52 10^6/uL Hemoglobin 18.3 H 13.3-17.7 g/dL Hematocrit 54 40-54 % Mean Corpuscular Volume 87 80-99 fL Mean Corpuscular Hemoglobin 29 25-34 pg Mean Corpuscular Hemoglobin Concent 34 32-36 g/dL Red Cell Distribution Width 13.2 10.0-14.5 % Platelet Count 462 H 130-400 10^3/uL Mean Platelet Volume 9.8 9.0-12.2 fL Immature Granulocyte % (Auto) 0 % Neutrophils (%) (Auto) 78 H 42-75 % Lymphocytes (%) (Auto) 12 12-44 % Monocytes (%) (Auto) 9 0-12 % Eosinophils (%) (Auto) 0 0-10 % Basophils (%) (Auto) 0 0-10 % Neutrophils # (Auto) 13.0 H 1.8-7.8 10^3/uL Lymphocytes # (Auto) 1.9 1.0-4.0 10^3/uL Monocytes # (Auto) 1.6 H 0.0-1.0 10^3/uL Eosinophils # (Auto) 0.1 0.0-0.3 10^3/uL Basophils # (Auto) 0.1 0.0-0.1 10^3/uL Immature Granulocyte # (Auto) 0.1 0.0-0.1 10^3/uL Neutrophils % (Manual) 84 % Lymphocytes % (Manual) 7 % Monocytes % (Manual) 9 % Eosinophils % (Manual) 0 % Basophils % (Manual) 0 % Band Neutrophils 0 % Blood Morphology Comment NORMAL Sodium Level 139 135-145 MMOL/L Potassium Level 3.4 L 3.6-5.0 MMOL/L Chloride Level 100 98-107 MMOL/L Carbon Dioxide Level 21 21-32 MMOL/L Anion Gap 18 H 5-14 MMOL/L Blood Urea Nitrogen 11 7-18 MG/DL Creatinine 0.92 0.60-1.30 MG/DL Estimat Glomerular Filtration Rate > 60 BUN/Creatinine Ratio 12 Glucose Level 143 H 70-105 MG/DL Calcium Level 9.3 8.5-10.1 MG/DL Glucometer 160 H 70-110 MG/DL My Orders Orders - AMPARO LEE MD Cbc With Automated Diff (05/22/21 16:27) Basic Metabolic Panel (05/22/21 16:27) Abdomen/Kub 1view (05/22/21 16:27) Ns Iv 1000 Ml (Sodium Chloride 0.9%) (05/22/21 16:30) Manual Differential (05/22/21 16:05) Vital Signs/I&O 05/22/21 16:19 Temp 34.7 Pulse 105 Resp 18 B/P (MAP) 126/95 (105) Pulse Ox 95 O2 Delivery Room Air Capillary Refill : Point of Care Testing Finger Stick Blood Glucose: 160 Blood Glucose Action Taken: rn notified Progress Note : Time: 18:35 Progress Note Patient reevaluated, feels better after his liter of fluids. Labs have been reviewed he does have a little bit of an elevated white count but also in the setting of increased red blood cells and platelets. I think this is more reflective of volume depletion he even though the patient states he has been drinking lots of water trying to get his bowels to move. I recommended that the patient take some kzel-nxz-pxwaifd magnesium citrate. I told him to drink about a half of a bottle today and stay close to the bathroom. He has no clinical or objective findings to warrant further tests from the emergency department. Clinically does not have a bowel obstruction and his KUB looks reassuring. No significantly dilated loops of bowel. Again he feels better. His abdomen is soft although a little bit distended. I have reviewed return precautions with him he verbalizes understanding. He has a follow-up appointment with Dr. Hernandez next Monday which is 3 days from now. Then he has an appointment with his primary care physician as well. Patient is stable for discharge. Departure Impression Primary Impression: Near syncope Additional Impressions: Constipation Qualified Codes: K59.00 - Constipation, unspecified Vasovagal episode Disposition: 01 HOME, SELF-CARE Condition: Stable Departure-Patient Inst. Decision time for Depature: 17:37 Referrals: HALEY MANNING MD (PCP/Family) Primary Care Physician CAROL HERNANDEZ DO Patient Instructions: Constipation, Adult (DC) Add. Discharge Instructions: Take some magnesium citrate, half a bottle this evening. Stay close to the bathroom. Continue to drink fluids to stay well-hydrated. Use ibuprofen and/or Tylenol as needed for pain. Stool softeners may also help. Return to the emergency room if you develop fever, worsening abdominal pain, vomiting or any other emergent concerning symptoms. Please keep your follow-up appointment with Dr. Hernandez next Monday. AMPARO LEE MD May 22, 2021 16:28
[2021-05-22] MEDS ORDERED: NS IV 1000 ML 1,000 ML IV SCH (16:30)
[2021-05-22 16:34] LABS: BASOPHILS # (AUTO) 0.1 10^3/uL (0.0-0.1); BASOPHILS % (AUTO) 0 % (0-10); EOSINOPHILS # (AUTO) 0.1 10^3/uL (0.0-0.3); EOSINOPHILS % (AUTO) 0 % (0-10); HEMATOCRIT 54 % (40-54); HEMOGLOBIN 18.3 g/dL (13.3-17.7); LYMPHOCYTES # (AUTO) 1.9 10^3/uL (1.0-4.0); LYMPHOCYTES % (AUTO) 12 % (12-44); MEAN CORPUSCULAR HEMOGLOBIN 29 pg (25-34); MEAN CORPUSCULAR HGB CONC 34 g/dL (32-36); MEAN CORPUSCULAR VOLUME 87 fL (80-99); MEAN PLATELET VOLUME 9.8 fL (9.0-12.2); MONOCYTES # (AUTO) 1.6 10^3/uL (0.0-1.0); MONOCYTES % (AUTO) 9 % (0-12); NEUTROPHILS % (AUTO) 78 % (42-75); PLATELET COUNT 462 10^3/uL (130-400); WHITE BLOOD COUNT 16.6 10^3/uL (4.3-11.0)
[2021-05-22 16:38] LABS: CHLORIDE 100 MMOL/L (98-107); POTASSIUM 3.4 MMOL/L (3.6-5.0); SODIUM 139 MMOL/L (135-145)
[2021-05-22 16:39] LABS: CALCIUM 9.3 MG/DL (8.5-10.1)
[2021-05-22 16:40] LABS: GLUCOSE 143 MG/DL (70-105)
[2021-05-22 16:41] LABS: CARBON DIOXIDE 21 MMOL/L (21-32)
[2021-05-22 16:44] LABS: CREATININE SERUM 0.92 MG/DL (0.60-1.30); GFR ESTIMATED > 60
[2021-05-22 16:45] LABS: BUN/CREATININE RATIO 12
[2021-05-22 17:07] LABS: BAND NEUTROPHILS 0 %; BASOPHILS % (MANUAL) 0 %; EOSINOPHILS % (MANUAL) 0 %; LYMPHOCYTES % (MANUAL) 7 %; MONOCYTES % (MANUAL) 9 %; NEUTROPHILS % (MANUAL) 84 %; RBC MORPH NORMAL
[2021-05-22 17:52] VITALS: BP 152/100
--- NOTE | 2021-05-22 18:50 | Diagnostic Imaging Report ---
INDICATION: Umbilical hernia surgery three days ago, dizziness, diapiresis, heart racing. FINDINGS: Supine view of the abdomen demonstrates some dilated loops of small bowel measuring up to 3.5 cm. Gas and stool is still seen throughout the colon. Osseous structures are normal. IMPRESSION: There are dilated loops of small bowel. Dictated by: Dictated on workstation # [id number]
== END 2021-05-22 18:11 | disposition home or self-care (01) ==
LOC: EDUNIT# 15:31 → ER 15:35
DX: R55 Syncope and collapse (principal); K59.00 Constipation, unspecified; I10 Essential (primary) hypertension; D72.829 Elevated white blood cell count, unspecified; Z87.19 Personal history of other diseases of the digestive system; Z79.899 Other long term (current) drug therapy
CPT/HCPCS: 36415; 74018; 80048; 82947; 85007; 85027

== ENCOUNTER 2022-03-23 12:25 | Outpatient (CLI) | payer OTHER ==
[~2022-03-23] VITALS: Ht 177.8 cm; Wt 104.3 kg
[2022-03-23] MEDS ORDERED: BENA-3 PO (12:45)
== END 2022-03-23 12:47 | disposition home or self-care (01) ==
LOC: PREOP 12:25
PROVIDERS: ATTEND Internal Medicine
DX: Z01.818 Encounter for other preprocedural examination (principal)

== ENCOUNTER 2022-03-30 07:55 | Outpatient (CLI) | payer OTHER ==
[~2022-03-30] VITALS: Ht 177.8 cm; Wt 104.3 kg
[~2022-03-30 07:55] MED LIST changes: +BENA-3 PO
== END 2022-03-30 09:34 | disposition home or self-care (01) ==
LOC: PREOP 07:55
PROVIDERS: ATTEND Internal Medicine
DX: Z01.818 Encounter for other preprocedural examination (principal)

== ENCOUNTER 2022-04-01 07:24 | Day surgery (SDC) | payer OTHER ==
--- NOTE | 2022-03-25 07:24 | HISTORY AND PHYSICAL ---
DATE OF SERVICE: COLONOSCOPY HISTORY AND PHYSICAL HISTORY OF PRESENT ILLNESS: The patient is a 61-year-old white male being set up for diagnostic colonoscopy. He had a possible diverticulitis a year ago and has a past history of colon polyps. He denies bright red blood per rectum, melena and has had no subsequent significant abdominal pain. He has not been as physically active and over the last six months, his weight was up 16 pounds. 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 He has been walking on a regular basis. Reports that he does not get the weight loss benefit that he does with bike riding, which tends to be for an hour at a time on the open road. He has had no bowel habit change. Denies melena or bright red blood per rectum. He has history of hypertension, currently only medication is benazepril 10 mg daily. PHYSICAL EXAMINATION: GENERAL: Reveals a white male, appeared to be in no acute distress. VITAL SIGNS: Blood pressure 132/100. HEENT: Unremarkable. Sclerae nonicteric. CHEST: Clear to auscultation. CARDIOVASCULAR: Reveals regular rate and rhythm without murmur or S3, soft S4 noted. ABDOMEN: Soft, supple without mass, organomegaly or tenderness. EXTREMITIES: Reveal no cyanosis, clubbing or edema. ASSESSMENT AND PLAN: 1. Hypertension, under good control and aggravated by weight gain. Discussed that it was just another reason to get back to bike riding, which he enjoys the most and gets for most benefit from a weight standpoint and likely overall health standpoint. For now, his benazepril was increased to 20 mg daily. I will see him back in six months for routine followup with repeat blood work. 2. History of colon polyps and possible diagnosis of diverticulitis a year ago per the patient's report. The patient is being set up for diagnostic colonoscopy. Prep instructions were given, and questions were answered. Job ID: [id number] DocumentID: [id number] Dictated Date: 03/17/2022 11:48:02 Door Slinger Date: 03/17/2022 12:14:52 Dictated By: HALEY MANNING MD
[~2022-04-01] VITALS: Ht 177.8 cm; Wt 104.3 kg
[2022-04-01] MEDS ORDERED: LACTATED RINGERS 1,000 ML IV STA (07:31)
[2022-04-01] MEDS ORDERED: PROPOFOL INJECTION 50 ML IV ONE (07:43)
[2022-04-01] MEDS ORDERED: MIDAZOLAM 2 MG/2 ML (VERSED) VIAL ONE (07:43)
--- NOTE | 2022-04-01 07:49 | Pre-Op Note & Conscious Sedat ---
Pre-Operative Progress Note H&P Reviewed The H&P was reviewed, patient examined and no changes noted. Date H&P Reviewed: April 01, 2022 Time H&P Reviewed: 07:48 Conscious Sedation Pre-Proced ASA Score 2 For ASA 3 and 4: Consider anesthesia and medical clearance. Also, for patients with a history of failed moderate sedation consider anesthesia. Airway Lungs Heart ASA score ASA 1: a normal healthy patient ASA 2: a patient with a mild systemic disease (mid diabetes, controlled hypertension, obesity ASA 3: a patient with a severe systemic disease that limits activity (angina, COPD, prior Myocardial infarction) ASA 4: a patient with an incapacitating disease that is a constant threat to life (CHF, renal failure) ASA 5: a moribund patient not expected to survive 24 hrs. (ruptured aneurysm) ASA 6: a declared brain- patient whose organs are being harvested. For emergent operations, add the letter E after the classification Mallampati Classification Grade 2 Sedation Plan Analgesia, Amnesia, Plan communicated to team members, Discussed options with patient/fam, Discussed risks with patient/fam The patient is an appropriate candidate to undergo the planned procedure, sedation, and anesthesia. The patient immediately re-assessed prior to indication. HALEY MANNING MD April 01, 2022 07:49
[2022-04-01 07:56] VITALS: BP 161/96
[2022-04-01 08:40] VITALS: BP 112/74
[2022-04-01 08:45] VITALS: BP 107/60
[2022-04-01 09:00] VITALS: BP 112/64
[2022-04-01 09:11] VITALS: BP 112/64
--- NOTE | 2022-04-01 09:18 | Anesthesia-General Post-Op ---
MAC Patient Condition Mental Status/LOC: Same as Preop Cardiovascular: Satisfactory Nausea/Vomiting: Absent Respiratory: Satisfactory Pain: Controlled Complications: Absent Post Op Complications Complications None Follow Up Care/Instructions Patient Instructions None needed. Anesthesiology Discharge Order Discharge Order Patient is doing well, no complaints, stable vital signs, no apparent adverse anesthesia problems. No complications reported per nursing. VERNA FIERRO CRNA April 01, 2022 09:18
--- NOTE | 2022-04-01 14:52 | OPERATIVE REPORT ---
DATE OF SERVICE: COLONOSCOPY SUMMARY INDICATION FOR THE PROCEDURE: History of colon polyps. The patient was placed in the left lateral decubitus position. Prior to undergoing colonoscopy, digital rectal evaluation was performed. Prostate was unremarkable to digital inspection. No abnormalities were noted on digital inspection of anal canal or distal rectal vault. The colonoscope was then inserted into the rectum and under direct visualization advanced to the cecum. The cecum was identified by identification of ileocecal valve and the cecal strap. Photographic documentation was obtained. Careful inspection was made as colonoscope was withdrawn. Quality of prep was good. FINDINGS: 1. No evidence for internal or external hemorrhoids and the rectum was unremarkable. Moderate diverticular disease confined to the sigmoid colon was present without evidence for diverticulitis. 2. Two diminutive adjacent polyps were noted in the mid sigmoid colon. They were biopsied and ablated with no subsequent blood loss. The descending colon, splenic flexure, transverse colon, hepatic flexure, ascending colon, and cecum were unremarkable. ASSESSMENT: 1. Mild to moderate diverticular disease confined to the sigmoid colon was present without evidence for diverticulitis. 2. Two 4 mm sessile polyps adjacent to each other in the mid sigmoid colon were biopsied and ablated with no subsequent blood loss. The prostate was unremarkable to digital inspection. PLAN: As long as there are no surprises on histopathology report, we will advocate consideration for repeat surveillance colonoscopy in 5 years. Job ID: [id number] DocumentID: [id number] Dictated Date: 04/01/2022 08:41:35 Milling Operator Date: 04/01/2022 14:51:38 Dictated By: HALEY MANNING MD
== END 2022-04-01 10:20 | disposition home or self-care (01) ==
LOC: ENDO 07:24
PROVIDERS: ATTEND Internal Medicine
DX: Z12.11 Encounter for screening for malignant neoplasm of colon (principal); K63.5 Polyp of colon; K57.30 Diverticulosis of large intestine without perforation or abscess without bleeding; I10 Essential (primary) hypertension; E66.9 Obesity, unspecified; Z68.33 Body mass index [BMI] 33.0-33.9, adult; Z79.899 Other long term (current) drug therapy
CPT/HCPCS: 88305